=== PATIENT | female | born 1950 | race Caucasian/White ===

== ENCOUNTER 2024-03-20 10:09 | Outpatient (CLI) | payer MEDICARE | END 2024-03-20 10:10 | disposition home or self-care (01) | LOC: CSHLAB 10:09 | PROVIDERS: ATTEND Obstetrics & Gynecology | DX: Z01.818 Encounter for other preprocedural examination (principal); N81.4 Uterovaginal prolapse, unspecified; R94.31 Abnormal electrocardiogram [ECG] [EKG] | CPT/HCPCS: 85027; 86850; 86900; 86901; 93005; 93010 ==

== ENCOUNTER 2024-03-24 07:16 | Day surgery (SDC) | payer MEDICARE ==
[2024-03-20 10:49] VITALS: BMI 30.2
[2024-03-20 11:17] LABS: Hematocrit 37.7 % (34.9-44.5); Hemoglobin 11.4 g/dL (12.0-15.5); Mean Corpuscular HGB CONC 30.2 g/dL (32.0-36.0); Mean Corpuscular Hemoglobin 24.5 pg (27.0-33.0); Mean Corpuscular Volume 80.9 fL (81.6-98.3); Mean Platelet Volume 9.4 fL (7.4-10.4); Platelet Count 272 10x3/uL (150-450); RBC Distribution Width 16.3 % (11.5-14.5); Red Blood Cell (RBC) Count 4.66 10x6/uL (3.90-5.03); White Blood Cell (WBC) Count 5.9 10x3/uL (3.5-10.5)
[2024-03-24] MEDS ORDERED: Dexamethasone 4 mg/ml Vial ONE (08:00)
[2024-03-24] MEDS ORDERED: Ondansetron PF 4 MG/2 ML Vial ONE (08:00)
[2024-03-24] MEDS ORDERED: Lidocaine 2% PF 5 ML VIAL ONE (08:00)
[2024-03-24] MEDS ORDERED: PROPOFOL 20 ML ONE (08:01)
[2024-03-24] MEDS ORDERED: ePHEDrine Sulfate 50 MG/10 ML VIAL ONE (08:02)
[2024-03-24] MEDS ORDERED: Famotidine/PF 20 mg/2ml Vial ONE (08:11)
[2024-03-24] MEDS ORDERED: CeleCOXIB 100 MG CAP ONE (08:11)
[2024-03-24] MEDS ORDERED: fentaNYL 50 mcg/mL 1 mL Vial ONE (08:33)
[2024-03-24] MEDS ORDERED: Lidocaine 1% w/Epinephrine 1:200K 30 ML VIAL ONE (08:34)
[2024-03-24] MEDS ORDERED: CEFAZOLIN 2 GM VIAL ONE (08:49)
[2024-03-24 08:55] LABS: Anion Gap 17 mmol/L (10-20); BUN (Urea Nitrogen) 19 mg/dL (9.8-20.1); Calc. Creatinine Clearance 44 mL/min (70-130); Calcium 10.1 mg/dL (7.8-10.44); Carbon Dioxide 24 mmol/L (23-31); Chloride 105 mmol/L (98-107); Estimated GFR 47; Glucose 153 mg/dL (83-110); Potassium 4.8 mmol/L (3.5-5.1); Sodium 141 mmol/L (136-145)
[2024-03-24] MEDS ORDERED: PHENYLEPHRINE-NS 100 MCG/ML 10 ML SYRINGE ONE ×2 (09:33→10:00)
== END 2024-03-24 12:45 | disposition home or self-care (01) ==
LOC: CSHSDC 07:16
PROVIDERS: ATTEND Obstetrics & Gynecology
PROC: 0ULG7ZZ Occlusion of Vagina, Via Natural or Artificial Opening (ICD-10-PCS; principal; 2024-03-24)
DX: N81.3 Complete uterovaginal prolapse (principal); N87.9 Dysplasia of cervix uteri, unspecified; N76.0 Acute vaginitis; E11.9 Type 2 diabetes mellitus without complications; J44.9 Chronic obstructive pulmonary disease, unspecified; Z87.891 Personal history of nicotine dependence; Z85.51 Personal history of malignant neoplasm of bladder; Z96.643 Presence of artificial hip joint, bilateral; Z96.651 Presence of right artificial knee joint; Z98.49 Cataract extraction status, unspecified eye; Z98.51 Tubal ligation status; Z79.82 Long term (current) use of aspirin; Z79.51 Long term (current) use of inhaled steroids; Z79.899 Other long term (current) drug therapy
CPT/HCPCS: 57120; 80048; 85027; 86850; 86900; 86901; J1100; J2405; J2704; J3010; J3490; 36415; 88305